=== PATIENT | female | born 1955 | race Hispanic/Latino ===

== ENCOUNTER 2019-11-29 21:31 | Emergency (ER) | payer MEDICARE ==
[~2019-11-29] VITALS: Ht 167.6 cm; Wt 99.8 kg
[2019-11-29] MEDS ORDERED: FAMOTIDINE 20 MG TAB PO ONE (22:00)
[2019-11-29] MEDS ORDERED: DIPHENHYDRAMINE HCL 25 MG CAP PO ONE (22:00)
[2019-11-29] MEDS ORDERED: DEXAMETHASONE SOD PHOS 10 MG/1 ML VIAL IM ONE (22:00)
[2019-11-29] MEDS ORDERED: DIPHENHYDRAMINE HCL 25 MG CAP ONE (22:01)
[2019-11-29] MEDS ORDERED: FAMOTIDINE 20 MG TAB ONE (22:02)
[2019-11-29] MEDS ORDERED: DEXAMETHASONE SOD PHOS 10 MG/1 ML VIAL ONE (22:02)
== END 2019-11-30 02:42 | disposition home or self-care (01) ==
LOC: FSED 21:31
DX: L27.0 Generalized skin eruption due to drugs and medicaments taken internally (principal); T39.1X5A Adverse effect of 4-Aminophenol derivatives, initial encounter; E11.9 Type 2 diabetes mellitus without complications; J44.9 Chronic obstructive pulmonary disease, unspecified; K21.9 Gastro-esophageal reflux disease without esophagitis; E03.9 Hypothyroidism, unspecified
CPT/HCPCS: 99282; J1100

== ENCOUNTER → 2023-02-11 | Day surgery (SDC) | payer MEDICARE, OTHER ==
[2023-02-04 10:39] LABS: BASOPHILS # (AUTO) 0.1 (0.0-0.1); BASOPHILS % 0.4 % (0.0-1.0); EOSINOPHILS # (AUTO) 0.2 (0.0-0.4); EOSINOPHILS % 1.4 % (0.0-6.0); HEMATOCRIT 32.1 % (34.2-44.1); HEMOGLOBIN 9.9 g/dL (12.0-16.0); LYMPHOCYTES # (AUTO) 3.6 (1.0-3.2); LYMPHOCYTES % 24.7 % (18.0-39.1); MEAN CORPUSCULAR HEMOGLOBIN 23.2 pg (28-32); MEAN CORPUSCULAR HGB CONC 30.8 g/dL (31-35); MEAN CORPUSCULAR VOLUME 75.2 fL (81-99); MONOCYTES # (AUTO) 0.9 (0.2-0.8); MONOCYTES % 5.8 % (4.4-11.3); NEUTROPHILS # (AUTO) 9.9 (2.1-6.9); NEUTROPHILS % 67.3 % (38.7-80.0); PLATELET COUNT 255 x10e3/uL (140-360); RED BLOOD COUNT 4.27 x10e6/uL (3.6-5.1); RED CELL DISTRIBUTION WIDTH 17.2 % (11.7-14.4)
[~2023-02-11] MED LIST: ALBUTEROL1.25 MG/3 NEB; ASPIRIN81 MG PO; ATIVAN0.5 MG PO; CRESTOR10 MG PO; FAMOTIDINE20 MG PO; FISH OIL 1,0001 EACH PO; LACTATED RINGER'S 1,000 ML ONE; LEVOTHYROXINE100 MC1 IV; LIDOCAINE HCL 2% LOCAL INJ 5 ML SDV VIAL INJ ONE; LOSARTAN POTAS100 MG PO; METFORMIN HCL850 MG PO; OMEPRAZOLE40 MG PO; POVIDONE IODINE 0.05% 0.05 % ML PO ONE; PROPOFOL IV EMULSION 10 MG/ML 20 ML VIAL ONE; SYMBICORT 80-10.2 GM INH; ZETIA10 MG PO
[2023-02-11 08:15] VITALS: BP 126/64; PULSE 84; RESP 18; O2SAT 98
== END | disposition home or self-care (01) ==
LOC: OR 07:18
PROVIDERS: ATTEND Internal Medicine Gastroenterology
DX: Z09 Encounter for follow-up examination after completed treatment for conditions other than malignant neoplasm (principal); D12.3 Benign neoplasm of transverse colon; K57.30 Diverticulosis of large intestine without perforation or abscess without bleeding; I10 Essential (primary) hypertension; J44.9 Chronic obstructive pulmonary disease, unspecified; E78.5 Hyperlipidemia, unspecified; K21.9 Gastro-esophageal reflux disease without esophagitis; E11.9 Type 2 diabetes mellitus without complications; E03.9 Hypothyroidism, unspecified; F41.9 Anxiety disorder, unspecified; Z88.8 Allergy status to other drugs, medicaments and biological substances; Z88.6 Allergy status to analgesic agent; Z88.1 Allergy status to other antibiotic agents; Z91.040 Latex allergy status; Z01.810 Encounter for preprocedural cardiovascular examination; Z01.812 Encounter for preprocedural laboratory examination; Z79.82 Long term (current) use of aspirin; Z79.84 Long term (current) use of oral hypoglycemic drugs; Z79.899 Other long term (current) drug therapy
CPT/HCPCS: 36415 ×2; 45385; 82948; 85025; 88305; 93005; J2001; J2704; J7121; 45378